=== PATIENT | male | born 1945 | race Caucasian/White ===

== ENCOUNTER 2017-01-22 08:45 | Inpatient (IN) ==
[2017-01-22] MEDS ORDERED: Acetaminophen 325 MG TABLET PO PRN (11:02)
[2017-01-22] MEDS ORDERED: Naloxone 0.4 MG/ML INJ IVP PRN (11:02)
[2017-01-22 11:25] LABS: Basophils % 0.4 %; Eosinophils # 0.1 K/mcL (0.0-0.6); Eosinophils % 1.1 %; Hematocrit 42.5 % (37.5-50.1); Hemoglobin 14.6 g/dL (12.9-16.9); Immature Granulocytes % 0.4 % (0-4); Immature Platelets 11.4 % (1.1-6.1); Lymphocytes # 0.7 K/mcL (0.6-4.6); Mean Corpuscular HGB Conc 34.4 g/dL (31.6-35.5); Mean Corpuscular Hemoglobin 31.1 pg (28.0-33.3); Mean Corpuscular Volume 90.6 fL (83.0-100.0); Mean Platelet Volume 11.7 fL (9.4-12.4); Monocytes # 0.6 K/mcL (0.0-1.3); Monocytes % 7.3 %; Neutrophils # 6.5 K/mcL (1.6-8.9); Platelet Count 114 K/mcL (140-400); Red Blood Count 4.69 M/mcL (4.19-5.50); Red Cell Distribution Width 12.7 % (11.5-14.5); Segmented Neutrophils % 81.8 %
[2017-01-22 11:32] LABS: INR 3.1; Prothrombin Time 33.8 Seconds (9.4-12.1)
[2017-01-22 11:36] LABS: BUN/Creatinine Ratio 6 (6-26); Blood Urea Nitrogen 8 mg/dL (8-26); Calcium 9.5 mg/dL (8.6-10.8); Carbon Dioxide 26 mEq/L (19-29); Chloride 105 mEq/L (98-109); Glucose 114 mg/dL (70-99); Osmolality,Calculated 289 (280-300); Potassium 4.5 mEq/L (3.5-4.5); Sodium 140 mEq/L (136-145); eGFR For African Americans > 60 (> 60); eGFR For Non-African Americans 56 (> 60)
--- NOTE | 2017-01-22 12:24 | History & Physical Report ---
Date of Encounter: 01/22/17 Time of Encounter: 11:30 24 Hour HP Update - Instructions Instructions: If the History and Physical is less than 30 days old and was completed prior to A.M. admission and or procedure and has NOT been updated on calendar day of procedure please complete this update prior to performing procedure. - Update Patient reports changes in Medical Condition: No Changes in examination, assessment, or condition: No Changes in Medication: No Preop tests/diagnostics Reviewed: Yes Additions to current History and Physical: Admission for rhythmol initiation.
--- NOTE | 2017-01-22 12:27 | Event Note ---
Date of Encounter: 01/22/17 Time of Encounter: 11:30 - Cardiology Event Note Patient admitted for rhythmol initiation. Patient denies changes in medication or condition. Per discussion with , will started rhythmol 150mg Q8 hours. Will check ECG daily. Baseline ECG with atria fibrillation, HR 80. QRS 96ms, Qt 381, QTc 416ms. Will continue home medications. Continuous cardiac monitoring.
--- NOTE | 2017-01-22 12:49 | Electrocardiograph Report ---
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
[2017-01-22] MEDS ORDERED: Warfarin perPT PO PRN (18:00)
[2017-01-22] MEDS ORDERED: *HR* Warfarin 5 MG TABLET PO ONE (18:00)
[2017-01-22] MEDS: Gabapentin 300 MG CAPSULE PO SCH (20:13)
[2017-01-22] MEDS: traZODone 50 MG TABLET PO SCH (20:13)
[2017-01-23 03:53] LABS: INR 2.9; Prothrombin Time 32.3 Seconds (9.4-12.1)
[2017-01-23] MEDS: Gabapentin 300 MG CAPSULE PO SCH ×2 (09:34→20:05)
[2017-01-23] MEDS: amLODIPine 5 MG TABLET PO SCH (09:34)
[2017-01-23] MEDS: Loratadine 10 MG TABLET PO SCH (09:34)
--- NOTE | 2017-01-23 09:35 | Electrophysiology ProgressNote ---
Date of Encounter: 01/23/17 Time of Encounter: 08:00 Assessment and Plan (1) A-fib Current Visit: No Status: Chronic Per EP: -Known atrial fibrillation. -Admitted for rhythmol initiation. -S/P 3 doses this mornning. -Baseline ECG with atrial fibrillation, HR 80. QRS 96ms. -ECG today with atrial fibrillation, HR 68. QRS 93ms. -On coumadin for anticoagulation. -INR has been therapeutic for the past 30 days. INR 12/21 2.7, 01/04 2.2, 01/22 3.1, 01/23 2.9. -continue rhythmol -Will make NPO after midnight for possible cardioversion tomorrow. -Will continue to monitor. Qualifiers: Atrial fibrillation type: persistent Qualified Code(s): I48.1 - Persistent atrial fibrillation (2) Encounter for monitoring anti-arrhythmic therapy Current Visit: Yes Status: Acute Per EP: -Started on rhythmol. -S/P 3 doses. -Will continue to monitor. (3) care home current use of anticoagulant Current Visit: Yes Status: Chronic Per EP: -ON coumadin for anticoagulation. -Will have pharmacy to dose coumadin while inpatient. Discussion w patient/family: The assessment and plan as outlined above was discussed with the patient who expressed understanding and agreement. All questions were answered. Thank you for involving us in the care of your patient. Please call with any questions. Discussed and reviewed with Dr.John Murray. Subjective Principal diagnosis: atrial fibrillation Interval history: Patient states he feels good this morning. Patient's only complaint was not sleeping much last night, however patient states this is his baseline. Objective Vital Signs, Last 4 Hours Temp Pulse Resp BP Pulse Ox 01/23/17 07:08 98.2 F 71 16 104/71 98 General: Conversant, No Apparent Distress HEENT: Atraumatic, Normocephaly, Mucus Membranes Moist Neck: No JVD, Normal carotid pulses Cardiac: Normal S1 and S2, No Murmur, Other (Irregularly, irregular) Lungs: Normal Breath Sounds, No Wheeze, Rales, Rhonchi Neuro: Alert and responsive, No focal deficits noted Abdomen: Soft, Non-Tender Skin: No rashes noted on visualized skin Musculoskeletal: No Chest Wall Tenderness Extremities: No Clubbing, No Cyanosis, No Edema, Normal Pulses Results 01/22/17 11:15 10/17/17 11:15 Lab Results Active Medications Acetaminophen (Tylenol) 650 mg PO Q6HR PRN PRN Reason: Mild Pain (1-3) Stop: 07/24/17 11:03 Albuterol Sulfate (Albuterol Inhaler) 2 puff IH Q4H PRN PRN Reason: asthma Stop: 07/24/17 12:29 Amlodipine Besylate (Norvasc) 5 mg PO DAILY NICOLE PRN Reason: Protocol Stop: 07/25/17 09:01 Gabapentin (Neurontin) 300 mg PO BID [facility] Stop: 07/24/17 21:01 Last Admin: 01/22/17 20:13 Dose: 300 mg Loratadine (Claritin) 10 mg PO DAILY [facility] Stop: 07/25/17 09:01 Metoprolol Tartrate (Lopressor) 50 mg PO BID [facility] Stop: 07/24/17 21:01 Last Admin: 01/22/17 20:13 Dose: 50 mg Naloxone HCl (Narcan) 0.4 mg IVP Q2MIN PRN PRN Reason: Opioid Reversal Stop: 07/24/17 11:03 Propafenone HCl (Rhythmol) 150 mg PO Q8HR [facility] Stop: 07/24/17 16:01 Last Admin: 01/23/17 00:06 Dose: 150 mg Trazodone HCl (Trazodone) 50 mg PO HS [facility] Stop: 07/24/17 21:01 Last Admin: 01/22/17 20:13 Dose: 50 mg Warfarin Sodium (Coumadin Perpt) 0 each PO DAILY@1800 PRN PRN Reason: SEE COMMENTS Stop: 07/24/17 18:01 Laboratory Tests 01/22/17 01/23/17 11:15 03:10 INR 2.9 Creatinine 1.27 H - EKG Interpretation EKG results cardiology: personally reviewed (ECG today with atrial fibrillation , HR 68. QRS 93ms, Qt 398, QTc 416ms.), other (Telemetry reviewed with average HR previous 12 hours noted to be 72, atrial fibrillation. Longest pause 2.1 seconds. PVCS noted.) - VTE Reasons for not Prescribing Prophylaxis: Not indicated-Anticoagulated or INR therapeutic Consult Discharge Plan - Plan Referrals: Earl Gallardo, [Primary Care Provider] -
[2017-01-23] MEDS ORDERED: *HR* Warfarin 7.5 MG TABLET PO SCH (18:00)
[2017-01-23] MEDS: traZODone 50 MG TABLET PO SCH (20:05)
[2017-01-24 05:02] LABS: INR 2.6; Prothrombin Time 28.2 Seconds (9.4-12.1)
[2017-01-24] MEDS: Loratadine 10 MG TABLET PO SCH (07:41)
[2017-01-24] MEDS: Gabapentin 300 MG CAPSULE PO SCH (07:42)
[2017-01-24] MEDS: amLODIPine 5 MG TABLET PO SCH (07:42)
[2017-01-24] MEDS ORDERED: 0.9 % Sodium Chloride 500 ML IVC ONE (10:49)
[2017-01-24 10:56] VITALS: BP 117/85
[2017-01-24] MEDS: *HR* Midazolam HCl 5 MG/5 ML VIAL IVP PRN ×2 (11:12→11:16)
[2017-01-24] MEDS: *HR* FentaNYL (PF) 100 MCG/2 ML VIAL IVP PRN ×2 (11:12→11:16)
--- NOTE | 2017-01-24 11:20 | Event Note ---
Date of Encounter: 01/24/17 Time of Encounter: 08:30 - Cardiology Event Note Patient is atrial fibrillation this morning, s/p 6 doses of rhythmol. PLan for cardioversion today. Risks versus benefits of cardioversion explained to patient. Patient states understanding and agreeable to proceed with cardioversion. INR has been therapeutic for the past 30 days. updated on need for cardioversion. PLan for discharge home later this afternoon pending cardioversion.
--- NOTE | 2017-01-24 13:55 | Discharge Summary ---
Date of Encounter: 01/24/17 Time of Encounter: 13:30 - Discharge Diagnosis (1) A-fib Priority: Primary Status: Chronic Comments: Known persistent atrial fibrillation. Qualifiers: Atrial fibrillation type: persistent Qualified Code(s): I48.1 - Persistent atrial fibrillation (2) Encounter for monitoring anti-arrhythmic therapy Priority: Secondary Status: Acute Comments: Admitted for rhythmol initiation. S/p 6 doses. (3) [facility] current use of anticoagulant Priority: Secondary Status: Chronic Comments: ON coumadin for anticoagulation. - Discharge Medications Prescriptions: Propafenone [Rhythmol] 150 mg PO Q8HR #180 tablet Home Medications: Trazodone HCl [TraZODone] 50 mg PO HS 05/11/15 [History] Gabapentin [Neurontin] 300 mg PO BID 11/25/15 [History] Albuterol Sulfate [Ventolin Hfa] 2 puff IH Q4-6H PRN 08/28/16 [History] Cetirizine HCl [All Day Allergy] 10 mg PO DAILY 08/28/16 [History] Warfarin [Coumadin] 10 mg PO MIN 08/28/16 [History] Metoprolol [Lopressor] 50 mg PO BID 12/05/16 [History] amLODIPine [Norvasc] 5 mg PO DAILY 12/05/16 [History] Warfarin [Coumadin] 7.5 mg PO [id number] 01/22/17 [History] Propafenone [Rhythmol] 150 mg PO Q8HR #180 tablet 01/24/17 [Rx] Allergies/Adverse Reactions: 3 Allergy/AdvReac Type Severity Reaction Status Date / Time No Known Allergies Allergy Verified 08/28/16 20:52 Procedures/tests Complete & Pending: Procedures Performed prior 72 hours Category Date Time Status ECG 12 lead ECG [ECG] AM 0600 Y 01/23/17 06:00 Completed ECG 12 lead ECG [ECG] AM 0600 Y 01/24/17 06:00 Completed ECG 12 lead ECG [ECG] AM 0600 Y 01/25/17 06:00 Ordered ECG 12 lead ECG [ECG] Routine Y 01/22/17 11:02 Completed ECG 12 lead ECG [ECG] Routine Y 01/22/17 17:40 Completed ECG 12 lead ECG [ECG] Routine Y 01/24/17 12:07 Completed EV cardioversion Routine Y 01/24/17 08:17 Completed Date of admission: 01/22/17 08:48 Primary care physician: Earl Gallardo DO Discharging clinician: Tracie Cortes Anticipated date of discharge: 01/24/17 - Patient Status Disposition: Home, Self-Care Condition: Good Functional capacity at discharge: independent ambulation Overall status at discharge: patient is progressing back to baseline - Discharge Instructions Follow Up With: Earl Gallardo DO [Primary Care Provider] - 01/30/17 9:30 am - Diet and Activity Activity: increase activity as tolerated Diet: low fat, low cholesterol, low salt diet - Hospital Course Hospital course: Mr. Orta is a 71 year old male who was admitted for rhythmol initiation. Patient is s/p 6 doses of rhythmol. Patient was atrial fibrillation this am and underwent DCCV with successful cardioversion to sinus rhythm. Initial ECG with atrial fibrillation, HR 80, QRS 96ms. ECG after cardioversion sinus bradycardia , HR 54, QRS 98ms. ECGs reviewed with Dr.John Murray who states patient is ok to be discharged. Currently HR 60-70s per bedside telemetry. Patient is on coumadin and follows with anticoagulation clinic. Pateint is being prepped for discharge home today in stable condition. Patient has follow up with Dr.John Murray. Can consider outpatient sleep study. - Time Spent with Patient Total time spent providing and/or coordinating discharge services: Less than 30 minutes Physical Examination Vital Signs, Last 4 Hours Temp Pulse Resp BP Pulse Ox 01/24/17 10:53 97.8 F 57 16 117/85 93 General: Conversant, No Apparent Distress HEENT: Atraumatic, Normocephaly, Mucus Membranes Moist Neck: No JVD, Normal carotid pulses Cardiac: Reg Rate and Rhythm, Normal S1 and S2, No Murmur Lungs: Normal Breath Sounds, No Wheeze, Rales, Rhonchi Neuro: Alert and responsive, No focal deficits noted Abdomen: Soft, Non-Tender Skin: No rashes noted on visualized skin Musculoskeletal: No Chest Wall Tenderness Extremities: No Clubbing, No Cyanosis, No Edema, Normal Pulses - VTE Reasons for not Prescribing Prophylaxis: Not indicated-Anticoagulated or INR therapeutic
[2017-01-24] MEDS ORDERED: FLUARIX QUAD 2017-18 36MOS UP/PF 0.5 ML SYRINGE IM ONE (15:08)
--- NOTE | 2017-01-24 15:47 | Electrocardiograph Report ---
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
--- NOTE | 2017-01-24 15:47 | Electrocardiograph Report ---
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
--- NOTE | 2017-01-25 18:18 | Electrocardiograph Report ---
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
== END 2017-01-24 16:05 | disposition home or self-care (01) | DRG 310 ==
LOC: ICNU 08:48 → 2NENU 13:07
PROVIDERS: ADMIT Internal Medicine Cardiovascular Disease; ATTEND Internal Medicine Cardiovascular Disease

== ENCOUNTER 2019-06-28 02:09 | Observation (INO) ==
[2019-06-28 03:43] LABS: Basophils % 0.4 %; Eosinophils % 0.4 %; Immature Granulocytes % 0.2 % (0-4); Mean Platelet Volume 13.4 fL (9.4-12.4); Red Cell Distribution Width 12.4 % (11.5-14.5)
[2019-06-28 03:44] LABS: Hematocrit 46.4 % (37.5-50.1); Hemoglobin 15.7 g/dL (12.9-16.9); Immature Platelets 15.6 % (1.1-6.1); Lymphocytes # 0.6 K/mcL (0.6-4.6); Lymphocytes % 11.1 %; Mean Corpuscular HGB Conc 33.8 g/dL (31.6-35.5); Mean Corpuscular Volume 94.5 fL (83.0-100.0); Monocytes # 0.6 K/mcL (0.0-1.3); Monocytes % 11.3 %; Neutrophils # 3.9 K/mcL (1.6-8.9); Red Blood Count 4.91 M/mcL (4.19-5.50); Segmented Neutrophils % 76.6 %; White Blood Count 5.1 K/mcL (4.3-11.1)
[2019-06-28 03:52] LABS: INR 1.9; Prothrombin Time 21.4 Seconds (9.4-12.1)
[2019-06-28 04:05] LABS: BUN/Creatinine Ratio 14 (6-26); Blood Urea Nitrogen 15 mg/dL (8-23); Calcium 9.4 mg/dL (8.6-10.3); Carbon Dioxide 20 mEq/L (23-29); Chloride 106 mEq/L (98-107); Glucose 120 mg/dL (70-105); Osmolality,Calculated 286 (280-300); Potassium 3.6 mEq/L (3.5-5.1); Sodium 137 mEq/L (136-145); Troponin I < 0.03 ng/mL (< 0.04); eGFR For African Americans > 60 (> 60); eGFR For Non-African Americans > 60 (> 60)
[2019-06-28 04:20] LABS: Platelet Count 73 K/mcL (140-400)
[2019-06-28] MEDS ORDERED: cefTRIAXone 2,000 MG in Water for inj. (sterile) 20 ML IVP ONE (04:59)
[2019-06-28] MEDS ORDERED: Azithromycin 500 MG in 0.9 % Sodium Chloride 250 ML IVPB ONE (04:59)
[2019-06-28] MEDS ORDERED: Aspirin 81 MG TAB.CHEW PO ONE (05:32)
[2019-06-28 06:24] LABS: Adenovirus Not Detected (Not Detect); Coronavirus 229E Not Detected (Not Detect); Coronavirus HKU1 Not Detected (Not Detect); Coronavirus NL63 Not Detected (Not Detect); Coronavirus OC43 Not Detected (Not Detect); Human Metapneumovirus DETECTED (Not Detect); Human Rhinovirus/Enterovirus Not Detected (Not Detect); Influenza A Subtype 2009 H1 Not Detected (Not Detect); Influenza B Not Detected (Not Detect); Parainfluenza Virus 1 Not Detected (Not Detect); Parainfluenza Virus 2 Not Detected (Not Detect); Parainfluenza Virus 3 Not Detected (Not Detect)
[2019-06-28 06:25] LABS: Bordetella Pertussis Not Detected (Not Detect); Chlamydophila pneumoniae Not Detected (Not Detect); Mycoplasma pneumoniae Not Detected (Not Detect); Parainfluenza Virus 4 Not Detected (Not Detect); Respiratory Syncytial Virus Not Detected (Not Detect)
[2019-06-28] MEDS ORDERED: Naloxone 0.4 MG/ML INJ IVP PRN (06:41)
[2019-06-28] MEDS ORDERED: Albuterol 2.5 MG/3 ML NEBULIZER IH PRN (06:44)
[2019-06-28] MEDS ORDERED: Benzonatate 100 MG CAPSULE PO PRN (06:45)
[2019-06-28] MEDS ORDERED: Azithromycin 500 MG in 0.9 % Sodium Chloride 250 ML IVPB SCH (07:00)
[2019-06-28] MEDS ORDERED: Acetaminophen 325 MG TABLET PO PRN (07:11)
[2019-06-28] MEDS ORDERED: traZODone 50 MG TABLET PO PRN (07:42)
[2019-06-28 08:44] VITALS: BP 165/97
[2019-06-28] MEDS ORDERED: Gabapentin 300 MG CAPSULE PO SCH (09:00)
[2019-06-28 09:51] LABS: Immature Reticulocyte % 9.1 % (11.0-38.0); Retculocyte # 0.03 M/mcL (0.05-0.10); Reticulocyte % 0.7 % (1.6-2.8)
[2019-06-28 10:06] LABS: Albumin 4.4 g/dL (3.5-5.7); Albumin/Globulin Ratio 1.5 (1.1-2.2); Bilirubin,Direct 0.6 mg/dL (0.0-0.2); Bilirubin,Indirect 1.5 mg/dL (0.0-1.0); Bilirubin,Total 2.1 mg/dL (0.3-1.0); Globulin 2.9 g/dL (2.4-3.5); Total Protein 7.3 g/dL (6.4-8.9)
[2019-06-28 10:33] LABS: Folate > 22.3 ng/mL (3.0-16.0); Vitamin B12 481 pg/mL (250-1100)
[2019-06-28] MEDS ORDERED: predniSONE 20 MG TABLET PO SCH (13:00)
[2019-06-28] MEDS ORDERED: Warfarin perPT PO PRN (18:00)
[2019-06-28] MEDS ORDERED: *HR* Warfarin 7.5 MG TABLET PO ONE (18:00)
[2019-06-29] MEDS ORDERED: Azithromycin 250 MG TABLET PO SCH (09:00)
[2019-06-30 09:36] LABS: Acinetobacter baumannii by PCR Not Detected (Not Detect); Enterobacter cloacae Cmplx PCR Not Detected (Not Detect); Enterobacteriaceae by PCR Not Detected (Not Detect); Enterococcus by PCR Not Detected (Not Detect); Escherichia coli by PCR Not Detected (Not Detect); Klebsiella oxytoca by PCR Not Detected (Not Detect); Staphylococcus aureus by PCR Not Detected (Not Detect); Staphylococcus by PCR DETECTED (Not Detect); Streptococcus agalactiae(B)PCR Not Detected (Not Detect); Streptococcus by PCR Not Detected (Not Detect); Streptococcus pneumoniae PCR Not Detected (Not Detect); Streptococcus pyogenes (A) PCR Not Detected (Not Detect); blaKPC Carbapenem-Resist Gene Not Detected (Not Detect); mecA Methicillin-Resist Gene Not Detected (Not Detect); vanA/B Vancomycin-Resist Genes Not Detected (Not Detect)
[2019-06-30 09:37] LABS: Candida albicans by PCR Not Detected (Not Detect); Candida glabrata by PCR Not Detected (Not Detect); Candida krusei by PCR Not Detected (Not Detect); Candida parapsilosis by PCR Not Detected (Not Detect); Candida tropicalis by PCR Not Detected (Not Detect); Klebsiella pneumoniae by PCR Not Detected (Not Detect); Proteus by PCR Not Detected (Not Detect); Pseudomonas aeruginosa by PCR Not Detected (Not Detect); Serratia marcescens by PCR Not Detected (Not Detect)
== END 2019-06-28 13:48 | disposition home or self-care (01) ==
LOC: EMEROOARM 02:09 → 3ANU 02:09 → SUATTDRO 06:34 → 3ANU 08:24
PROVIDERS: ADMIT Internal Medicine; ATTEND Internal Medicine

== ENCOUNTER 2021-11-24 18:12 | Inpatient (IN) ==
[2021-11-24] MEDS ORDERED: Naloxone 0.4 MG/ML INJ IVP PRN (22:24)
[2021-11-24] MEDS ORDERED: Dexmedetomidine HCl 400 MCG/100 ML MLS IVC SCH (22:45)
[2021-11-25] MEDS ORDERED: *HR* HYDROmorphone (PF) 1 MG/ML SYRINGE IVP PRN (01:42)
[2021-11-25] MEDS ORDERED: *HR* Heparin 5,000 UNIT/ML VIAL IVP PRN ×2 (02:13)
[2021-11-25] MEDS ORDERED: Heparin 25,000UNIT/250ML 1/2NS 25,000 UNIT/250 ML IV.SOLN IVC SCH (02:15)
[2021-11-25] MEDS: Ketorolac 30 MG/ML VIAL IVP PRN ×3 (02:34→21:34)
[2021-11-25 02:36] LABS: VBG HCO3 19 mEq/L (21-27); VBG PCO2 27 mmHg (41-51); VBG PH 7.46 pH Units (7.32-7.42); VBG PO2 181 mmHg (25-50)
[2021-11-25 05:05] LABS: Eosinophils % 0.4 %; Immature Granulocytes % 0.4 % (0-4); Mean Corpuscular HGB Conc 34.9 g/dL (31.6-35.5)
[2021-11-25 05:07] LABS: Basophils % 0.4 %; Hematocrit 35.2 % (37.5-50.1); Hemoglobin 12.3 g/dL (12.9-16.9); Immature Platelets 12.7 % (1.1-6.1); Lymphocytes # 0.4 K/mcL (0.6-4.6); Lymphocytes % 17.4 %; Mean Corpuscular Hemoglobin 31.1 pg (28.0-33.3); Mean Corpuscular Volume 88.9 fL (83.0-100.0); Mean Platelet Volume 12.9 fL (9.4-12.4); Monocytes # 0.4 K/mcL (0.0-1.3); Monocytes % 14.5 %; Neutrophils # 1.6 K/mcL (1.6-8.9); Red Blood Count 3.96 M/mcL (4.19-5.50); Red Cell Distribution Width 12.2 % (11.5-14.5); Segmented Neutrophils % 66.9 %; White Blood Count 2.4 K/mcL (4.3-11.1)
[2021-11-25 05:10] LABS: Platelet Count 59 K/mcL (140-400)
[2021-11-25 05:12] LABS: Heparin anti-factor XA UFH 0.24 IU/mL (0.30-0.70)
[2021-11-25 05:15] LABS: INR 2.1; Prothrombin Time 23.4 Seconds (9.4-12.1)
[2021-11-25] MEDS ORDERED: Gadolinium Contrast Agent (WT Based) IV PRN (05:17)
[2021-11-25 05:34] LABS: Alanine Aminotransferase 56 Units/L (7-52); Albumin 3.3 g/dL (3.5-5.7); Albumin/Globulin Ratio 1.5 (1.1-2.2); Alkaline Phosphatase 50 Units/L (34-104); Aspartate Amino Transferase 86 Units/L (13-39); BUN/Creatinine Ratio 16 (6-26); Bilirubin,Total 2.2 mg/dL (0.3-1.0); Blood Urea Nitrogen 13 mg/dL (8-23); Calcium 7.8 mg/dL (8.6-10.3); Carbon Dioxide 20 mEq/L (23-29); Chloride 109 mEq/L (98-107); Globulin 2.2 g/dL (2.4-3.5); Glucose 146 mg/dL (70-105); Osmolality,Calculated 285 (280-300); Potassium 3.5 mEq/L (3.5-5.1); Sodium 136 mEq/L (136-145); Total Protein 5.5 g/dL (6.4-8.9)
[2021-11-25 06:45] LABS: Ferritin > 1500 ng/mL (20-250)
[2021-11-25] MEDS: Morphine Sulfate 2 MG/ML SYRINGE IVP PRN ×4 (10:54→23:26)
[2021-11-25] MEDS: *HR* Enoxaparin 100 MG/ML SYRINGE SQ SCH ×2 (10:55→20:47)
[2021-11-25] MEDS: Neosporin OINT 15 GM TUBE TP SCH ×3 (10:56→19:24)
[2021-11-25 11:34] LABS: C-Reactive Protein 52 mg/L (Less than 10)
[2021-11-25 12:14] LABS: Amphetamine Screen,Urine Negative ng/mL (Cutoff=1000); Barbiturate Screen,Urine Negative ng/mL (Cutoff=200); Benzodiazepines Screen,Urine Negative ng/mL (Cutoff=200); Cannabinoid Screen,Urine Negative ng/mL (Cutoff = 50); Cocaine Screen,Urine Negative ng/mL (Cutoff= 300); Opiate Screen,Urine Positive ng/mL (Cutoff=300); Phencyclidine Screen,Urine Negative ng/mL (Cutoff=25)
[2021-11-25] MEDS ORDERED: *HR* Metoprolol 5 MG/5 ML VIAL IVP ONE (12:45)
[2021-11-25] MEDS: *HR* Metoprolol 5 MG/5 ML VIAL IVP SCH (15:25)
[2021-11-25] MEDS: D5% in 0.45% NACL w KCl 10 MEQ/1,000 ML MLS IVC SCH ×2 (15:27→23:28)
[2021-11-25] MEDS ORDERED: *HR* Warfarin 7.5 MG TABLET PO ONE (18:00)
[2021-11-25] MEDS ORDERED: Warfarin perPT PO PRN (18:00)
[2021-11-26] MEDS: *HR* Metoprolol 5 MG/5 ML VIAL IVP SCH ×4 (00:18→17:34)
[2021-11-26] MEDS: Morphine Sulfate 2 MG/ML SYRINGE IVP PRN ×3 (03:35→20:49)
[2021-11-26] MEDS: Ketorolac 30 MG/ML VIAL IVP PRN ×2 (03:35→13:28)
[2021-11-26] MEDS ORDERED: Haloperidol Lactate 5 MG/ML VIAL IVP PRN (07:59)
[2021-11-26] MEDS ORDERED: *HR* LORazepam 2 MG/ML VIAL IVP PRN (07:59)
[2021-11-26] MEDS ORDERED: Dexmedetomidine HCl 400 MCG/100 ML MLS IVC SCH (08:15)
[2021-11-26] MEDS: *HR* Enoxaparin 100 MG/ML SYRINGE SQ SCH ×2 (08:28→20:16)
[2021-11-26] MEDS: Neosporin OINT 15 GM TUBE TP SCH ×3 (08:36→20:17)
[2021-11-26] MEDS: Dexmedetomidine HCl 400 MCG/100 ML MLS IVC SCH ×3 (10:07→17:40)
[2021-11-26 14:19] LABS: Hematocrit 35.1 % (37.5-50.1); Hemoglobin 11.9 g/dL (12.9-16.9); Mean Corpuscular HGB Conc 33.9 g/dL (31.6-35.5); Mean Corpuscular Hemoglobin 30.9 pg (28.0-33.3); Mean Corpuscular Volume 91.2 fL (83.0-100.0); Mean Platelet Volume 12.9 fL (9.4-12.4); Red Blood Count 3.85 M/mcL (4.19-5.50); Red Cell Distribution Width 12.5 % (11.5-14.5); White Blood Count 3.5 K/mcL (4.3-11.1)
[2021-11-26 14:21] LABS: Platelet Count 74 K/mcL (140-400)
[2021-11-26 14:39] LABS: BUN/Creatinine Ratio 22 (6-26); Blood Urea Nitrogen 15 mg/dL (8-23); Calcium 7.8 mg/dL (8.6-10.3); Carbon Dioxide 20 mEq/L (23-29); Chloride 111 mEq/L (98-107); Glucose 125 mg/dL (70-105); Magnesium 1.8 mg/dL (1.6-2.6); Osmolality,Calculated 284 (280-300); Phosphorous 2.6 mg/dL (2.7-4.5); Potassium 3.4 mEq/L (3.5-5.1); Sodium 136 mEq/L (136-145)
[2021-11-27] MEDS: Dexmedetomidine HCl 400 MCG/100 ML MLS IVC SCH ×4 (00:37→17:49)
[2021-11-27] MEDS ORDERED: *HR* LORazepam 2 MG/ML VIAL IVP ONE ×3 (02:23→20:39)
[2021-11-27] MEDS ORDERED: Haloperidol Lactate 5 MG/ML VIAL IVP ONE ×4 (02:23→19:43)
[2021-11-27] MEDS: *HR* Metoprolol 5 MG/5 ML VIAL IVP SCH ×5 (03:31→23:02)
[2021-11-27] MEDS: *HR* Enoxaparin 100 MG/ML SYRINGE SQ SCH ×2 (08:50→20:48)
[2021-11-27] MEDS: Neosporin OINT 15 GM TUBE TP SCH ×3 (08:51→20:49)
[2021-11-27 11:47] LABS: VBG HCO3 20 mEq/L (21-27); VBG PCO2 31 mmHg (41-51); VBG PH 7.41 pH Units (7.32-7.42); VBG PO2 39 mmHg (25-50)
[2021-11-27] MEDS ORDERED: *HR* LORazepam 2 MG/ML VIAL ONE (20:07)
[2021-11-27] MEDS ORDERED: QUEtiapine Fumarate 25 MG TABLET PO SCH (21:00)
[2021-11-27] MEDS: Ketorolac 30 MG/ML VIAL IVP PRN (23:01)
[2021-11-27] MEDS: Morphine Sulfate 2 MG/ML SYRINGE IVP PRN (23:01)
[2021-11-28] MEDS: *HR* Metoprolol 5 MG/5 ML VIAL IVP SCH ×4 (05:35→21:34)
[2021-11-28] MEDS: Ketorolac 30 MG/ML VIAL IVP PRN ×2 (05:41→09:50)
[2021-11-28] MEDS: Morphine Sulfate 2 MG/ML SYRINGE IVP PRN ×4 (05:50→21:41)
[2021-11-28] MEDS: Dexmedetomidine HCl 400 MCG/100 ML MLS IVC SCH ×3 (05:54→21:37)
[2021-11-28] MEDS: *HR* Enoxaparin 100 MG/ML SYRINGE SQ SCH ×2 (09:19→21:41)
[2021-11-28] MEDS: Neosporin OINT 15 GM TUBE TP SCH ×3 (09:19→21:19)
[2021-11-28] MEDS ORDERED: Morphine Sulfate 2 MG/ML SYRINGE IVP PRN (11:46)
[2021-11-28 15:26] LABS: Basophils % 0.3 %; Eosinophils # 0.1 K/mcL (0.0-0.6); Eosinophils % 1.2 %; Hematocrit 28.7 % (37.5-50.1); Immature Granulocytes % 0.8 % (0-4); Lymphocytes # 0.9 K/mcL (0.6-4.6); Lymphocytes % 13.1 %; Mean Corpuscular HGB Conc 34.1 g/dL (31.6-35.5); Mean Corpuscular Hemoglobin 30.3 pg (28.0-33.3); Mean Corpuscular Volume 88.9 fL (83.0-100.0); Mean Platelet Volume 12.7 fL (9.4-12.4); Monocytes # 0.8 K/mcL (0.0-1.3); Monocytes % 12.2 %; Neutrophils # 4.7 K/mcL (1.6-8.9); Platelet Count 123 K/mcL (140-400); Red Blood Count 3.23 M/mcL (4.19-5.50); Red Cell Distribution Width 12.3 % (11.5-14.5); Segmented Neutrophils % 72.4 %
[2021-11-28 15:27] LABS: Hemoglobin 9.8 g/dL (12.9-16.9); White Blood Count 6.5 K/mcL (4.3-11.1)
[2021-11-28 15:54] LABS: Calcium 7.9 mg/dL (8.6-10.3); Potassium 3.3 mEq/L (3.5-5.1)
[2021-11-29] MEDS: Dexmedetomidine HCl 400 MCG/100 ML MLS IVC SCH ×2 (01:44→10:59)
[2021-11-29] MEDS: Morphine Sulfate 2 MG/ML SYRINGE IVP PRN ×2 (03:41→07:46)
[2021-11-29] MEDS: *HR* Metoprolol 5 MG/5 ML VIAL IVP SCH ×3 (05:22→17:25)
[2021-11-29 06:26] LABS: Calcium 7.6 mg/dL (8.6-10.3); Potassium 3.7 mEq/L (3.5-5.1)
[2021-11-29] MEDS ORDERED: *HR* Metoprolol 5 MG/5 ML VIAL IVP ONE (08:04)
[2021-11-29] MEDS: *HR* Enoxaparin 100 MG/ML SYRINGE SQ SCH (08:29)
[2021-11-29] MEDS ORDERED: 0.45 % Sodium Chloride w/KCl 20 MEQ/1,000 ML MLS IVC SCH (08:45)
[2021-11-29] MEDS ORDERED: LOK IVPB SCH (08:48)
[2021-11-29] MEDS ORDERED: ACYCLOVIR IVPB SCH (08:48)
[2021-11-29] MEDS: ACYCLOVIR IVPB SCH ×2 (10:55→18:45)
[2021-11-29] MEDS: WATER IVPB SCH ×2 (10:55→18:45)
[2021-11-29] MEDS: D5 IVPB SCH ×2 (10:55→18:45)
[2021-11-29] MEDS: Neosporin OINT 15 GM TUBE TP SCH ×3 (11:12→20:12)
[2021-11-29 11:27] LABS: ABG Base Excess -9 mEq/L (-2 to 3); ABG HCO3 15 mEq/L (21-27); ABG Oxygen Saturation 94 % (95-98); ABG PCO2 25 mmHg (35-45); ABG PO2 68 mmHg (85-104); ABG TCO2 16 mEq/L (20-26)
[2021-11-29] MEDS: Thiamine (B-1) 100 MG in 0.9 % Sodium Chloride 50 ML IVPB SCH ×4 (11:28→20:12)
[2021-11-29] MEDS ORDERED: *HR* Metoprolol 5 MG/5 ML VIAL IVP SCH (12:00)
[2021-11-29] MEDS ORDERED: Piperacillin/Tazobactam 3.375 GM in 0.9 % Sodium Chloride Mini Bag 100 ML IVPB ONE (12:02)
[2021-11-29 12:03] LABS: Thyroid Stimulating Hormone 1.9 mcIU/mL (0.340-5.600)
[2021-11-29 12:16] LABS: Folate > 22.3 ng/mL (3.0-16.0); Vitamin B12 1116 pg/mL (250-1100)
[2021-11-29] MEDS ORDERED: Vancomycin 1,500 MG/265 ML IV.SOLN IVPB SCH (13:00)
[2021-11-29] MEDS ORDERED: Ringers Solution, Lactated 1,000 ML ONE (15:31)
[2021-11-29] MEDS ORDERED: FentaNYL (PF) 1,000 MCG/100 ML IV.SOLN ONE (15:37)
[2021-11-29] MEDS ORDERED: FentaNYL (PF) 1,000 MCG/100 ML IV.SOLN IVC SCH (15:45)
[2021-11-29] MEDS ORDERED: Midazolam HCl 50 MG/50 ML IV.SOLN IVC SCH (15:45)
[2021-11-29] MEDS ORDERED: Artificial Tears SOLN 15 ML BOTTLE BOTH EYES PRN (16:02)
[2021-11-29] MEDS ORDERED: Pantoprazole 40 MG VIAL IVP SCH (16:15)
[2021-11-29 16:26] VITALS: TEMP 97.6
[2021-11-29 16:27] LABS: Prothrombin Time 124.6 Seconds (9.4-12.1)
[2021-11-29 16:28] LABS: INR 11.4
[2021-11-29] MEDS: Ampicillin 2,000 MG in 0.9 % Sodium Chloride Mini Bag 100 ML IVPB SCH ×3 (16:39→20:14)
[2021-11-29] MEDS: Norepinephrine 4 MG/254 ML IV.SOLN IVC SCH ×3 (17:06→19:05)
[2021-11-29] MEDS: cefTRIAXone 2,000 MG in 0.9 % Sodium Chloride Mini Bag 100 ML IVPB SCH ×2 (17:07→18:35)
[2021-11-29] MEDS: EPINEPHrine 5 MG in D5% in Water 250 ML IVC SCH ×2 (17:45→19:38)
[2021-11-29] MEDS: 0.9 % Sodium Chloride 2,000 ML ONE ×2 (18:39→18:45)
[2021-11-29 19:11] LABS: ABG Base Excess -25 mEq/L (-2 to 3); ABG HCO3 7 mEq/L (21-27); ABG Oxygen Saturation 91 % (95-98); ABG PCO2 44 mmHg (35-45); ABG PO2 112 mmHg (85-104); ABG TCO2 8 mEq/L (20-26); Blood Gas Modality ASSIST CONTROL; Blood Gas VT 500 cc
[2021-11-29] MEDS ORDERED: Norepinephrine 32 MG/250 ML IV.SOLN IVC SCH (19:15)
[2021-11-29] MEDS ORDERED: Sodium Bicarbonate 150 MEQ in D5% in Water 1,000 ML IVC SCH (19:30)
[2021-11-29] MEDS ORDERED: Artificial Tears SOLN 15 ML BOTTLE BOTH EYES SCH (20:00)
[2021-11-29 20:09] VITALS: BP 71/32
[2021-11-29] MEDS ORDERED: Chlorhexidine Rinse 15 ML MOUTHWASH MM SCH (21:00)
[2021-11-29 21:06] VITALS: O2SAT 82
[2021-11-29 21:22] VITALS: PULSE 102
[2021-11-29] MEDS ORDERED: *HR* EPINEPHrine 1 MG/10 ML SYRINGE IVP ONE (22:47)
[2021-11-29] MEDS ORDERED: *HR* Etomidate 20 MG/10 ML AMPUL IVP ONE (22:47)
[2021-11-29] MEDS ORDERED: *HR* Midazolam HCl 5 MG/5 ML VIAL IVP ONE (22:47)
[2021-11-29 23:03] LABS: Alanine Aminotransferase > 5000 Units/L (7-52); Albumin/Globulin Ratio 1.2 (1.1-2.2); Alkaline Phosphatase 91 Units/L (34-104); Aspartate Amino Transferase > 3000 Units/L (13-39); BUN/Creatinine Ratio 17 (6-26); Bilirubin,Direct 0.7 mg/dL (0.0-0.2); Bilirubin,Indirect 0.8 mg/dL (0.0-1.0); Bilirubin,Total 1.5 mg/dL (0.3-1.0); Blood Urea Nitrogen 46 mg/dL (8-23); C-Reactive Protein 27 mg/L (Less than 10); Calcium 6.9 mg/dL (8.6-10.3); Carbon Dioxide 7 mEq/L (23-29); Chloride 114 mEq/L (98-107); Creatine Kinase 479 Units/L (30-223); Globulin 1.7 g/dL (2.4-3.5); Glucose 159 mg/dL (70-105); Osmolality,Calculated 321 (280-300); Sodium 148 mEq/L (136-145); Total Protein 3.7 g/dL (6.4-8.9); Troponin I 0.03 ng/mL (< 0.04)
== END 2021-11-29 22:48 | disposition expired | DRG 871 ==
LOC: SUATTDRO 20:52 → 2NNU 20:52 → ICNU 11-29 15:43
PROVIDERS: ADMIT Internal Medicine; ATTEND Student in an Organized Health Care Education/Training Program